=== PATIENT | female | born 2000 | race Hispanic/Latino ===

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

== ENCOUNTER 2023-09-08 20:32 | Emergency (ER) | payer BC, MEDICAID ==
[~2023-09-08] VITALS: Ht 165.1 cm; Wt 117.9 kg
[2023-09-08 20:59] LABS: APPEARANCE,URINE CLEAR (CLEAR); BILIRUBIN,URINE NEGATIVE (NEGATIVE); COLOR,URINE LIGHT-YELLOW (YELLOW); GLUCOSE, URINE (UA) NEGATIVE (NEGATIVE); KETONES,URINE NEGATIVE (NEGATIVE); LEUKOCYTE ESTERASE ,URINE NEGATIVE Leu/uL (NEGATIVE); NITRATE,URINE NEGATIVE (NEGATIVE); OCCULT BLOOD,URINE NEGATIVE (NEGATIVE); PH,URINE 6.5 (5.0-8.0); PROTEIN,URINE NEGATIVE (NEGATIVE); UROBILINOGEN,URINE 0.2 mg/dL (0.2-1.0)
[2023-09-08 21:00] LABS: BASOPHILS # (AUTO) 0.04 K/uL (0.00-0.20); BASOPHILS % (AUTO) 0.3 % (0.0-5.0); EOSINOPHILS # (AUTO) 0.07 K/uL (0.00-0.70); EOSINOPHILS % (AUTO) 0.6 % (0.0-8.0); HEMATOCRIT 39.9 % (36-48); IMMATURE GRANULOCYTE ABSOLUTE 0.04 K/uL (0-1); LYMPHOCYTES # (AUTO) 1.5 K/uL (1.0-4.8); LYMPHOCYTES % (AUTO) 12.4 % (21.0-51.0); MEAN CORPUSCULAR HEMOGLOBIN 27.3 pg (27.0-33.0); MEAN CORPUSCULAR HGB CONC 33.3 g/dL (32.0-36.0); MEAN CORPUSCULAR VOLUME 81.8 fL (80-100); MONOCYTES # (AUTO) 0.8 K/uL (0.1-1.0); MONOCYTES % (AUTO) 6.3 % (3.0-13.0); NEUTROPHILS # (AUTO) 9.9 K/uL (1.8-7.7); NEUTROPHILS % (AUTO) 80.1 % (40.0-77.0); PLATELET COUNT (AUTO) 318 K/uL (130-400); RED BLOOD CELL COUNT(AUTO) 4.88 MIL/uL (4.00-5.50); RED CELL DISTRIBUTION WIDTH 14.3 % (11.0-15.5); WHITE BLOOD COUNT (AUTO) 12.3 K/uL (4.8-10.8)
[2023-09-08] MEDS: ONDANSETRON 4MG INJ IVP STA (21:02)
[2023-09-08] MEDS: 0.9%NACL 1000ML 1,000 ML IV STA (21:02)
[2023-09-08] MEDS: FAMOTIDINE 20MG VIAL IV STA (21:02)
[2023-09-08 21:08] LABS: HCG,QUALITATIVE URINE NEGATIVE (NEGATIVE)
[2023-09-08 21:09] LABS: ADD UA MICROSCOPIC YES
[2023-09-08 21:10] LABS: BACTERIA,URINE FEW /HPF (None Seen); MUCUS,URINE RARE LPF (None Seen); SQUAMOUS EPITHELIAL CELL,UR RARE /HPF (0-2)
[2023-09-08 21:29] LABS: INFLUENZA TYPE A Negative For Type A (NEGATIVE); INFLUENZA TYPE B Negative For Type B (NEGATIVE)
[2023-09-08 21:33] LABS: CREATININE 0.6 mg/dL (0.5-1.0); POTASSIUM 3.7 mmol/L (3.5-5.1)
[2023-09-08] MEDS: KETOROLAC 15MG/ML VIAL (15MG/ML) IV STA (21:35)
[2023-09-08 21:45] LABS: ALBUMIN 4.2 g/dL (3.5-5.0); BILIRUBIN,TOTAL 0.4 mg/dL (0.2-1.0); TOTAL PROTEIN, SERUM 8.2 g/dL (6.0-8.3)
[2023-09-08] MEDS ORDERED: ONDA4TAB10 PO (22:09)
[2023-09-08 22:20] VITALS: BP 148/89; PULSE 79; RESP 18; O2SAT 99
== END 2023-09-08 22:28 | disposition home or self-care (01) ==
LOC: EDH 20:32
DX: A08.4 Viral intestinal infection, unspecified (principal)
CPT/HCPCS: 99284; 96374; 96375; 80053; 83690; 85025; 87804 ×2; 81001; 81025; 36415; J3490; J7030; J2405; J1885